=== PATIENT | female | born 1995 | race Caucasian/White ===

== ENCOUNTER 2021-04-05 08:21 | Day surgery (SDC) | payer OTHER ==
[~2021-04-05] VITALS: Ht 167.6 cm; Wt 79.8 kg
[~2021-04-05 08:21] MED LIST: AZEL137S4 NAS; Allergy Shots INJ; BECL10.62 INH; allegra PO; nasocort NS
[2021-04-05] MEDS ORDERED: CHLORHEXIDINE 15 ML UDC PO ONE (09:00)
[2021-04-05] MEDS ORDERED: PROM12.554 PR (09:00)
[2021-04-05] MEDS ORDERED: LACTATED RINGERS 1,000 ML IV SCH ×2 (09:00→12:00)
[2021-04-05 09:01] VITALS: BP 130/86
[2021-04-05 09:03] LABS: HCG UR SG 1.003 (1.003-1.030)
[2021-04-05] MEDS ORDERED: FENTANYL PF 100 MCG/2ML ONE ×2 (09:40→10:37)
[2021-04-05] MEDS ORDERED: MIDAZOLAM 1 MG/ML, 2ML ONE ×2 (09:40→12:54)
[2021-04-05] MEDS ORDERED: PROPOFOL 50 ML ONE (09:40)
[2021-04-05] MEDS ORDERED: SILVER NITRATE STICK TP ONE (09:41)
[2021-04-05] MEDS ORDERED: BUPIVACAINE/PF 0.25% ONE (09:41)
[2021-04-05] MEDS ORDERED: GLYCOPYRROLATE 0.2MG/1ML, 5ML ONE ×2 (09:42→10:50)
[2021-04-05] MEDS ORDERED: DEXAMETHASONE 4 MG/ML, 1ML ONE ×2 (09:42→10:50)
[2021-04-05] MEDS ORDERED: ROCURONIUM 10MG/ML,5ML ONE ×2 (09:42→10:50)
[2021-04-05] MEDS ORDERED: ONDANSETRON 2MG/ML, 2ML ONE ×2 (09:42→10:50)
[2021-04-05] MEDS ORDERED: PROPOFOL 10 MG/ML, 20ML ONE ×2 (09:42→10:50)
[2021-04-05] MEDS ORDERED: SUCCINYLCHOLINE 20 MG/ML, 10ML ONE ×2 (09:42→10:50)
[2021-04-05] MEDS ORDERED: EPINEPHRINE 1 MG/ML, 1ML ONE ×2 (09:42→12:19)
[2021-04-05] MEDS ORDERED: CEFAZOLIN 1,000 MG ONE ×2 (09:42→10:50)
[2021-04-05] MEDS ORDERED: NEOSTIGMINE 1 MG/ML, 10ML ONE ×2 (09:42→10:50)
[2021-04-05] MEDS ORDERED: FLUORESCEIN SODIUM 500 MG/5 ML ONE (09:49)
[2021-04-05] MEDS ORDERED: SUGAMMADEX 200 MG/2 ML IVPush ONE (10:16)
[2021-04-05] MEDS ORDERED: PROPOFOL 100 ML ONE (10:42)
[2021-04-05] MEDS ORDERED: HYDROmorphone 1 MG/ML, 1ML INJ ONE (10:51)
[2021-04-05] MEDS ORDERED: HALOPERIDOL 5 MG/ML IV PRN (11:00)
[2021-04-05] MEDS ORDERED: METHOCARBAMOL 1,000 MG in DEXTROSE 5% 100 ML IV PRN (11:00)
[2021-04-05] MEDS ORDERED: ALBUTEROL SULFATE 2.5 MG/3 ML NPPB PRN (11:00)
[2021-04-05] MEDS ORDERED: ACETAMINOPHEN 325 MG TABLET PO PRN (11:00)
[2021-04-05] MEDS ORDERED: LORazepam 2 MG/ML, 1ML IVPush PRN (11:00)
[2021-04-05] MEDS ORDERED: FENTANYL PF 100 MCG/2ML IV PRN (11:00)
[2021-04-05] MEDS ORDERED: PROMETHAZINE 25 MG/ML, 1ML IVPush PRN (11:00)
[2021-04-05] MEDS ORDERED: OXYcodone 5 MG/5 ML ORAL.SOL UDC PO PRN (11:00)
[2021-04-05] MEDS ORDERED: HYDROmorphone 1 MG/ML, 1ML INJ IVPush PRN (11:00)
[2021-04-05] MEDS ORDERED: ONDANSETRON 2MG/ML, 2ML IVPush PRN ×2 (11:00→12:00)
[2021-04-05] MEDS ORDERED: PROMETHAZINE 25 MG SUPP PR PRN (11:00)
[2021-04-05] MEDS ORDERED: INTERCEED 3 X 4 INCH DRESSING ONE (11:07)
[2021-04-05] MEDS ORDERED: PROMETHAZINE 25 MG SUPP PR ONE (12:00)
[2021-04-05] MEDS ORDERED: HYDROcodone/APAP 5/325 TABLET PO PRN (12:00)
[2021-04-05] MEDS ORDERED: IBUPROFEN 600 MG TABLET PO PRN (12:00)
[2021-04-05] MEDS ORDERED: BUPIVACAINE/PF 0.5% ONE (12:19)
[2021-04-05] MEDS ORDERED: MIDAZOLAM 1 MG/ML, 2ML IV PRN (13:00)
[2021-04-05] MEDS ORDERED: HALOPERIDOL 5 MG/ML ONE (13:11)
[2021-04-05] MEDS ORDERED: MEPERIDINE/PF 25MG/ML,1ML ONE (13:47)
[2021-04-05] MEDS ORDERED: MEPERIDINE/PF 25MG/0.5ML IVPush PRN (14:00)
== END 2021-04-05 17:12 | disposition home or self-care (01) ==
LOC: OUT 08:21
PROVIDERS: ATTEND Obstetrics & Gynecology Female Pelvic Medicine and Reconstructive Surgery
DX: N80.0 Endometriosis of uterus (principal); N73.6 Female pelvic peritoneal adhesions (postinfective); N83.201 Unspecified ovarian cyst, right side; G43.909 Migraine, unspecified, not intractable, without status migrainosus; Z88.8 Allergy status to other drugs, medicaments and biological substances; Z98.890 Other specified postprocedural states; Z79.899 Other long term (current) drug therapy; Z20.822 Contact with and (suspected) exposure to COVID-19
CPT/HCPCS: 58662; 81025; C1765; J0171; J0690; J1100; J1170; J2250; J2405; J2704; J2710; J3010; J7120; U0003; U0005; J0330